=== PATIENT | female | born 1950 | race Caucasian/White ===

== ENCOUNTER 2024-07-06 08:02 | Inpatient (IN) | payer MEDICARE ==
[~2024-07-06] VITALS: Ht 165.1 cm; Wt 83.9 kg
[2024-07-06] MEDS: PIPERACILLIN/TAZO 3.375G/50ML 50 ML IV ONE (08:24)
[2024-07-06] MEDS: SODIUM CHLORIDE 0.9% (SEPSIS BOLUS) IV ONE (08:36)
[2024-07-06] MEDS: VANCOMYCIN 1G PREMIX 200 ML IV ONE (08:43)
[2024-07-06 08:44] LABS: BASOPHILS % 0.6 % (0.0-2.0); DIFFERENTIAL COMMENT 0; EOSINOPHILS % 1.4 % (0.0-5.0); HEMATOCRIT. 35.8 % (36.0-48.0); HEMOGLOBIN. 11.9 g/dL (12.0-16.0); LYMPHOCYTES % 19.4 % (20.0-50.0); MEAN CORPUSCULAR HEMOGLOBIN 34.9 pg (28.0-32.0); MEAN CORPUSCULAR HGB CONC 33.1 g/dL (31.0-37.0); MEAN CORPUSCULAR VOLUME 105.4 fL (81.0-99.0); MEAN PLATELET VOLUME 7.2 fl (7.4-10.4); MONOCYTES % 8.5 % (2.0-8.0); NEUTROPHILS % 70.1 % (40.0-76.0); PLATELET 163 x1000/uL (130-400); WHITE BLOOD COUNT 6.5 x1000/uL (4.5-11.0)
[2024-07-06 08:59] LABS: CARBON DIOXIDE 22 mEq/L (21-32); CHLORIDE 102 mEq/L (98-107); POTASSIUM 3.1 mEq/L (3.5-5.1); SODIUM 139 mEq/L (136-145)
[2024-07-06 09:00] LABS: CALCIUM 9.4 mg/dL (8.7-10.4)
[2024-07-06 09:02] LABS: INR 1.1; PROTHROMBIN TIME 11.4 sec (9.6-11.0)
[2024-07-06 09:04] LABS: CREATININE 1.6 mg/dL (0.6-1.0)
[2024-07-06 09:05] LABS: GLUCOSE 97 mg/dL (70-105); UREA NITROGEN BLOOD 30 mg/dL (9-23)
[2024-07-06 09:06] LABS: ALANINE AMINOTRANSFERASE 12 IU/L (10-49); ASPARTATE AMINOTRANSFERASE 29 IU/L (<34)
[2024-07-06 09:07] LABS: BILIRUBIN DIRECT 0.3 mg/dL (<=3.0); BILIRUBIN TOTAL 1.1 mg/dL (0.1-1.0); PROTEIN TOTAL 6.9 g/dL (6.0-8.3)
[2024-07-06 09:16] LABS: LACTIC ACID 2.2 mmol/L (0.4-2.0)
[2024-07-06 09:18] LABS: TROPONIN I HIGH SENSITIVITY 806 ng/L (3.0-34)
[2024-07-06] MEDS ORDERED: OMEP20CA14 PO (12:27)
[2024-07-06] MEDS ORDERED: TRAZ-251 PO (12:27)
[2024-07-06] MEDS ORDERED: ALEN70TA79 PO (12:27)
[2024-07-06] MEDS ORDERED: ATOR20TA65 PO (12:27)
[2024-07-06] MEDS ORDERED: DOCUSATE SODIUM 100MG CAPSULE PO PRN (12:30)
[2024-07-06] MEDS ORDERED: NITROGLYCERIN 0.4MG TABLET SL SL PRN (12:30)
[2024-07-06] MEDS ORDERED: MORPHINE SULFATE 4 MG/ML INJ (FOR IV/IM USE) IV PRN (12:30)
[2024-07-06] MEDS ORDERED: GUAIFENESIN 200MG/10ML SUGAR FREE UDC PO PRN (12:30)
[2024-07-06] MEDS ORDERED: IPRATROPIUM/ALBUTEROL 0.5-3(2.5)MG/3ML NEB HHN PRN (12:30)
[2024-07-06] MEDS ORDERED: MAGNESIUM/ALUMINUM HYDROXIDE/SIMETHICONE 30ML UDC PO PRN (12:30)
[2024-07-06] MEDS ORDERED: ONDANSETRON HCL 4MG/2ML INJ IV PRN (12:30)
[2024-07-06] MEDS ORDERED: CLONIDINE 0.1MG TABLET PO PRN (12:30)
[2024-07-06] MEDS ORDERED: HYDROCODONE/ACETAMINOPHEN 5/325MG TABLET PO PRN (12:30)
[2024-07-06] MEDS ORDERED: ACETAMINOPHEN 325MG TABLET PO PRN ×2 (12:30)
[2024-07-06 13:00] LABS: IRON 43 ug/dL (50-170)
[2024-07-06 13:02] LABS: PHOSPHORUS 2.2 mg/dL (2.5-4.9)
[2024-07-06 13:03] LABS: TOTAL IRON BINDING CAPACITY 144 ug/dl (250-425)
[2024-07-06] MEDS: ASPIRIN 325MG EC TABLET PO NR (13:14)
[2024-07-06] MEDS: POTASSIUM CHLORIDE 20MEQ TABLET SR PO NR (13:14)
[2024-07-06] MEDS: SODIUM CHLORIDE 0.9% 1,000 ML IV SCH (13:15)
[2024-07-06] MEDS: LORAZEPAM 2MG/ML UD SYRINGE IV NR (13:15)
[2024-07-06 13:45] VITALS: BP 128/77; PULSE 107; RESP 18; TEMP 36.4; O2SAT 100
[2024-07-06 14:59] VITALS: BP 128/77; PULSE 107; RESP 18; TEMP 36.5
[2024-07-06] MEDS: ALENDRONATE SODIUM 35MG TABLET PO SCH (15:32)
[2024-07-06 16:41] VITALS: BP 116/78; PULSE 104; RESP 20; TEMP 36.5; O2SAT 98
[2024-07-06] MEDS: MAGNESIUM 2 G PREMIX 50 ML IV NR ×2 (17:29→21:17)
[2024-07-06 18:08] LABS: FERRITIN 309 ng/mL (10-291)
[2024-07-06 18:09] LABS: FOLIC ACID (FOLATE) SERUM 11.49 ng/mL (>5.38); VITAMIN B12 SERUM 173 pg/mL (211-911)
[2024-07-06 18:14] LABS: TROPONIN I HIGH SENSITIVITY 676 ng/L (3.0-34)
[2024-07-06 20:00] VITALS: BP 118/74; PULSE 97; RESP 19; TEMP 36.3; O2SAT 96
[2024-07-06] MEDS ORDERED: IOHEXOL-350 100 ML BOTTLE ONE (20:56)
[2024-07-06] MEDS: TRAZODONE HCL 50MG TABLET PO SCH (21:17)
[2024-07-06] MEDS: METOPROLOL TARTRATE 25MG TABLET PO SCH (21:19)
[2024-07-06] MEDS: LEVETIRACETAM 500MG PREMIX 100 ML IV SCH (21:36)
[2024-07-06 21:55] LABS: CREATINE KINASE MB FRACTION 3.4 ng/mL (0.5-3.6)
[2024-07-06 23:41] LABS: CREATINE KINASE MB FRACTION 3.7 ng/mL (0.5-3.6)
[2024-07-07] VITALS: BP 97/62; PULSE 90; RESP 16; TEMP 36.6; O2SAT 96
[2024-07-07 04:00] VITALS: BP 106/63; PULSE 79; RESP 16; TEMP 36.4; O2SAT 97
[2024-07-07 06:57] LABS: BASOPHILS % 1.3 % (0.0-2.0); DIFFERENTIAL COMMENT 0; EOSINOPHILS % 5.1 % (0.0-5.0); HEMOGLOBIN. 10.2 g/dL (12.0-16.0); LYMPHOCYTES % 34.4 % (20.0-50.0); MEAN CORPUSCULAR HEMOGLOBIN 34.8 pg (28.0-32.0); MEAN CORPUSCULAR HGB CONC 32.8 g/dL (31.0-37.0); MEAN CORPUSCULAR VOLUME 106.1 fL (81.0-99.0); MEAN PLATELET VOLUME 7.7 fl (7.4-10.4); MONOCYTES % 10.9 % (2.0-8.0); NEUTROPHILS % 48.3 % (40.0-76.0); PLATELET 127 x1000/uL (130-400); RED BLOOD CELL COUNT 2.92 mill/uL (4.2-5.4); RED CELL DISTRIBUTION WIDTH 17.9 % (11.6-14.6); WHITE BLOOD COUNT 4.3 x1000/uL (4.5-11.0)
[2024-07-07 07:11] LABS: CHLORIDE 109 mEq/L (98-107); POTASSIUM 3.9 mEq/L (3.5-5.1); SODIUM 142 mEq/L (136-145)
[2024-07-07 07:12] LABS: CARBON DIOXIDE 20 mEq/L (21-32)
[2024-07-07 07:13] LABS: CALCIUM 7.8 mg/dL (8.7-10.4)
[2024-07-07 07:17] LABS: CREATININE 1.4 mg/dL (0.6-1.0); GLUCOSE 87 mg/dL (70-105)
[2024-07-07 07:18] LABS: LDL CHOLESTEROL 71 mg/dL (5-100); TRIGLYCERIDE 61 mg/dL (0-150); UREA NITROGEN BLOOD 27 mg/dL (9-23)
[2024-07-07 07:19] LABS: CHOLESTEROL 178 mg/dL (<200); HDL CHOLESTEROL 77 mg/dL (>65)
[2024-07-07 07:20] LABS: THYROID STIMULATING HORMONE 0.98 uIU/mL (0.55-4.78)
[2024-07-07] MEDS ORDERED: IOHEXOL-350 100 ML BOTTLE ONE (07:33)
[2024-07-07 07:59] LABS: TROPONIN I HIGH SENSITIVITY 380 ng/L (3.0-34)
[2024-07-07 08:00] VITALS: BP 104/62; PULSE 77; RESP 18; TEMP 36.4; O2SAT 99
[2024-07-07] MEDS: FOLIC ACID 1MG TABLET PO SCH (09:00)
[2024-07-07] MEDS: PANTOPRAZOLE SODIUM 40 MG/VIAL IV SCH (09:00)
[2024-07-07] MEDS ORDERED: ATORVASTATIN CALCIUM 20MG TABLET PO SCH (09:00)
[2024-07-07] MEDS: ATORVASTATIN CALCIUM 20MG TABLET PO SCH (09:01)
[2024-07-07] MEDS: ASPIRIN 81MG EC TABLET PO SCH (09:01)
[2024-07-07] MEDS: THIAMINE HCL 100MG TABLET PO SCH (09:02)
[2024-07-07] MEDS: SERTRALINE HCL 50MG TABLET PO SCH (09:02)
[2024-07-07] MEDS: AMLODIPINE 10MG TABLET PO SCH (09:10)
[2024-07-07] MEDS: MAGNESIUM 4 G PREMIX 100 ML IV NR (11:16)
[2024-07-07 12:00] VITALS: BP_SYST 105; BP_SYST 99; BP_DIAS 58; BP_DIAS 64; PULSE 90; RESP 18; TEMP 36.3; O2SAT 100
[2024-07-07 16:00] VITALS: BP 110/67; PULSE 74; RESP 18; TEMP 36.5; O2SAT 100
[2024-07-07 20:00] VITALS: BP_SYST 103; BP_SYST 106; BP_SYST 107; BP_DIAS 53; BP_DIAS 57; BP_DIAS 62; PULSE 80; RESP 19; TEMP 36.4; O2SAT 97
[2024-07-08 00:08] VITALS: BP 107/55; PULSE 84; RESP 19; TEMP 36.8; O2SAT 98
[2024-07-08 04:00] VITALS: BP 109/57; PULSE 83; RESP 18; TEMP 36.6; O2SAT 97
[2024-07-08 08:00] VITALS: BP 106/57; PULSE 59; RESP 20; TEMP 36.6; O2SAT 98
[2024-07-08] MEDS ORDERED: KEPP500 MT (08:42)
[2024-07-08] MEDS ORDERED: FOLI-43 PO (08:42)
[2024-07-08] MEDS ORDERED: SERT50TA PO (08:42)
[2024-07-08] MEDS ORDERED: THIA100T72 PO (08:42)
[2024-07-08] MEDS ORDERED: ATOR20TA PO (08:42)
[2024-07-08] MEDS ORDERED: ASPI-1406 PO (08:42)
[2024-07-08] MEDS ORDERED: AMLO10TA80 PO (08:42)
[2024-07-08] MEDS ORDERED: METO25TA6 PO (08:42)
[2024-07-08 12:00] VITALS: BP 134/55; PULSE 68; RESP 20; TEMP 36.9; O2SAT 97
[2024-07-08 15:04] VITALS: BP 108/61; PULSE 85; TEMP 98; O2SAT 97
[2024-07-08] MEDS ORDERED: NALOXONE HCL 0.4MG/ML VIAL IV PRN (16:45)
== END 2024-07-08 14:00 | disposition home or self-care (01) | DRG 100 ==
LOC: ER 08:02 → EDBEDREQ 08:53 → 7WST 10:58 → EDBEDREQSVC 11:05 → EDBEDREQ 11:05 → ENRESERV 11:09
PROVIDERS: ADMIT Internal Medicine; ATTEND Internal Medicine
DX: G40.409 Other generalized epilepsy and epileptic syndromes, not intractable, without status epilepticus (principal); I21.A1 Myocardial infarction type 2; N17.9 Acute kidney failure, unspecified; I95.1 Orthostatic hypotension; I49.9 Cardiac arrhythmia, unspecified; I65.29 Occlusion and stenosis of unspecified carotid artery; E86.0 Dehydration; N18.32 Chronic kidney disease, stage 3b; I12.9 Hypertensive chronic kidney disease with stage 1 through stage 4 chronic kidney disease, or unspecified chronic kidney disease; E87.6 Hypokalemia; D53.9 Nutritional anemia, unspecified; F10.10 Alcohol abuse, uncomplicated; G47.00 Insomnia, unspecified; E78.5 Hyperlipidemia, unspecified; E87.70 Fluid overload, unspecified; F41.9 Anxiety disorder, unspecified; Z79.82 Long term (current) use of aspirin; Z79.899 Other long term (current) drug therapy
CPT/HCPCS: 36415; 70496; 70498; 71045; 80048; 80061; 80076; 82550; 82553; 82607; 82728; 82746; 83540; 83550; 83605; 83735; 83880; 84100; 84145; 84439; 84443; 84484; 85025; 93005; 97162; 97166; 99285; J1953; J2060; J2470; J2543; J3370; J3475; J7030; Q9967